=== PATIENT | female | born 2000 | race Caucasian/White ===

== ENCOUNTER 2020-04-29 15:26 | Emergency (ER) | payer MEDICAID ==
[2020-04-29 15:32] VITALS: BP 139/83
--- NOTE | 2020-04-29 15:45 | ER Document Report ---
ED Medical Screen (RME) - General Chief Complaint: Vag Bleeding, +preg <12wks Stated Complaint: VAGINAL BLEEDING Time Seen by Provider: 04/29/20 15:39 - HPI Notes: 04/29/20 15:44 19-year-old female 8 weeks G1, P0 presents emergency room with vaginal bleeding that started about 20 minutes ago. Patient reports her last menstrual cycle was March 08, 2020. Denies any fevers or chills, chest pain or shortness of breath. Reports she does have some dizziness and nausea that is been going on for the last few days. I have greeted and performed a rapid initial assessment of this patient. A comprehensive ED assessment and evaluation of the patient, analysis of test results and completion of the medical decision making process will be conducted by additional ED providers. PHYSICAL EXAMINATION: GENERAL: Well-appearing, well-nourished and in no acute distress. HEAD: Atraumatic, normocephalic. EYES: Pupils equal round extraocular movements intact, conjunctiva are normal. NECK: Normal range of motion CV: s1, s2 regular abd: pelvic cramping Physical Exam - Vital signs Vitals: Temp Pulse Resp BP Pulse Ox 98.7 F 106 H 20 139/83 H 100 04/29/20 15:30 04/29/20 15:30 04/29/20 15:30 04/29/20 15:30 04/29/20 15:30 Course - Vital Signs Vital signs: Temp Pulse Resp BP Pulse Ox 98.7 F 106 H 20 139/83 H 100 04/29/20 15:30 04/29/20 15:30 04/29/20 15:30 04/29/20 15:30 04/29/20 15:30
--- NOTE | 2020-04-29 16:58 | ER Document Report ---
ED General - General Chief Complaint: Vag Bleeding, +preg <12wks Stated Complaint: VAGINAL BLEEDING Time Seen by Provider: 04/29/20 15:39 Mode of Arrival: Ambulatory Information source: Patient Notes: 04/29/20 15:42 - Nursing Note by JOAQUIM JENSEN Num: [id number] : 2000 Patient Age: 19 Pt ambulated to triage room without difficulty. Pt reports Last menstrual cycle was March 08, 2020. Pt reports vaginal spotting that started approx 20 minutes ago. Pt denies vaginal bleeding, reports "only once while wiping vagina after going to bathroom." Pt denies urinary or bowel symptoms. Pt sitting up to chair, Resp even & unlabored. Pt able to speak in complete sentences. WALE Rebolledo present for triage. Initialized on 04/29/20 15:42 - END OF NOTE my notes 19-year-old female arrives with chief complaint of having vaginal spotting that occurred shortly prior to arrival. Patient reports she was proposed to last and she and her got on Friday. Today is Friday. Patient reports she was wiping 1 time while after urination and saw some scant amount of vaginal bleeding. Patient reports she is urinated a few times afterwards and has had no bleeding. She denies any sexual intercourse within 12 hours. She is G1, P0 and therefore has anode worker in being . She therefore came in because she was a bit apprehensive. No one in the family has any coronavirus or sickness. She denies any dysuria or post void abdominal pain. She denies any cough or cold symptoms. She denies any skin lesions. TRAVEL OUTSIDE OF THE [place] IN LAST 30 DAYS: No - HPI Onset: Just prior to arrival Onset/Duration: Sudden, Better Quality of pain: No pain Severity: None Pain Level: Denies - Related Data Allergies/Adverse Reactions: No Known Allergies Allergy (Verified 04/29/20 15:47) Past Medical History - General Information source: Patient, Relative - With in room. They both appear calm and not anxious. - Social History Smoking Status: Former Smoker Cigarette use (# per day): No Chew tobacco use (# tins/day): No Smoking Education Provided: No Frequency of alcohol use: None Drug Abuse: None Lives with: Family Family History: Reviewed & Not Pertinent Patient has suicidal ideation: No Patient has homicidal ideation: No Review of Systems - Review of Systems Constitutional: No symptoms reported EENT: No symptoms reported Cardiovascular: No symptoms reported Respiratory: No symptoms reported Gastrointestinal: No symptoms reported Genitourinary: No symptoms reported Female Genitourinary: See HPI, , Vaginal bleeding Musculoskeletal: No symptoms reported Skin: No symptoms reported Hematologic/Lymphatic: No symptoms reported Neurological/Psychological: No symptoms reported Physical Exam - Vital signs Vitals: Temp Pulse Resp BP Pulse Ox 98.7 F 106 H 20 139/83 H 100 04/29/20 15:30 04/29/20 15:30 04/29/20 15:30 04/29/20 15:30 04/29/20 15:30 Interpretation: Tachycardic - General General appearance: Alert - HEENT Head: Normocephalic, Atraumatic Eyes: Normal Pupils: PERRL Mucous membranes: Normal Pharynx: Normal Neck: Normal - Respiratory Respiratory status: No respiratory distress Chest status: Nontender Breath sounds: Normal Chest palpation: Normal - Cardiovascular Rhythm: Regular Heart sounds: Normal auscultation Murmur: No - Abdominal Inspection: Normal Distension: No distension Bowel sounds: Normal Tenderness: Nontender Organomegaly: No organomegaly - Rectal Hemorrhoids: Other - deferred - Genitourinary Bimanuel exam: Other - deferred - Back Back: Normal - Extremities General upper extremity: Normal inspection General lower extremity: Normal inspection - Neurological Neuro grossly intact: Yes Cognition: Normal Orientation: AAOx4 Udell Coma Scale Eye Opening: Spontaneous Udell Coma Scale Verbal: Oriented Tito Coma Scale Motor: Obeys Commands Udell Coma Scale Total: 15 Speech: Normal Motor strength normal: LUE, RUE, LLE, RLE Sensory: Normal - Psychological Associated symptoms: Normal affect - Skin Skin Temperature: Warm Skin Moisture: Dry Course - Vital Signs Vital signs: Temp Pulse Resp BP Pulse Ox 98.7 F 106 H 20 139/83 H 100 04/29/20 15:30 04/29/20 15:30 04/29/20 15:30 04/29/20 15:30 04/29/20 15:30 - Laboratory Result Diagrams: 04/29/20 16:40 04/29/20 16:40 Laboratory results interpreted by me: 04/29/20 04/29/20 16:40 16:40 RDW 14.3 H Sodium 135.5 L Beta HCG, Quant 57493.00 H - Diagnostic Test Radiology reviewed: Reports reviewed - Ultrasound positive for IUP at 7 weeks with bradycardia at 89 bpm. Close follow-up is advised because of this according to radiologist. I advised and patient of this fact as well. Dr. Diez and Dr. Cason or rn assessment Maria Ines are landscape contractor. And I advised patient to follow-up with these professionals. Discharge - Discharge Clinical Impression: Qualifiers: Weeks of gestation: less than 8 weeks Qualified Code(s): Z3A.01 - Less than 8 weeks gestation of Normal IUP (intrauterine ) on ultrasound Qualifiers: Trimester: first trimester Qualified Code(s): Z34.91 - Encounter for supervision of normal , unspecified, first trimester Condition: Good Disposition: HOME, SELF-CARE Additional Instructions: Your ultrasound was positive for a IUP living baby at around 7 weeks gravid with a heartbeat at 89 bpm a bit slow and therefore close follow-up for this is advised by Dr. Diez or Dr. Cason or rn assessment Maria Ines. Please follow-up with these professionals. Also advise vaginal rest with no douches tub baths or sex until seen by OB doctor. Referrals: SYLWIA CASON MD [ACTIVE PROVISIONAL STAFF] - Follow up as needed COURTNEY DIEZ MD [ACTIVE STAFF] - Follow up as needed
[2020-04-29 17:08] LABS: ABSOLUTE EOSINOPHILS # (AUTO) 0.2 10^3/uL (0.0-0.6); ABSOLUTE LYMPHOCYTES (AUTO) 2.3 10^3/uL (0.5-4.7); ABSOLUTE MONOCYTES (AUTO) 0.4 10^3/uL (0.1-1.4); ABSOLUTE NEUT (AUTO) 2.3 10^3/uL (1.7-8.2); BASOPHILS % (AUTO) 0.5 % (0-2); HEMATOCRIT 39.8 % (36.0-47.0); HEMOGLOBIN 13.6 g/dL (12.0-15.5); LYMPHOCYTES % (AUTO) 44.7 % (13-45); MEAN CORPUSCULAR HGB CONC 34.2 g/dL (32.0-36.0); MEAN CORPUSCULAR VOLUME 85 fl (80-97); MONOCYTES % (AUTO) 7.1 % (3-13); PLATELET COUNT 216 10^3/uL (150-450); RED CELL DISTRIBUTION WIDTH 14.3 % (11.5-14.0); SEGMENTED NEUTROPHILS % (AUTO) 44.7 % (42-78); TOTAL CELLS COUNTED % (AUTO) 100 %; WHITE BLOOD COUNT 5.1 10^3/uL (4.0-10.5)
[2020-04-29 17:27] LABS: ALBUMIN 4.2 g/dL (3.5-5.0); ALKALINE PHOSPHATASE 64 U/L (38-126); ANION GAP 9 (5-19); ASPARTATE AMINO TRANSFERASE 27 U/L (14-36); BILIRUBIN,TOTAL 0.4 mg/dL (0.2-1.3); BLOOD UREA NITROGEN 11 mg/dL (7-20); CALCIUM 9.4 mg/dL (8.4-10.2); CARBON DIOXIDE 24 mmol/L (22-30); CHLORIDE 103 mmol/L (98-107); GLUCOSE 76 mg/dL (75-110); POTASSIUM 4.3 mmol/L (3.6-5.0); TOTAL PROTEIN 7.1 g/dL (6.3-8.2)
--- NOTE | 2020-04-29 17:51 | RADIOLOGY REPORT (SQ) ---
EXAM DESCRIPTION: U/S [id number] TRNABD 1GES W/ODOP IMAGES COMPLETED DATE/TIME: 04/29/2020 5:29 pm REASON FOR STUDY: 8w preg, , vag bleeding started today COMPARISON: None. TECHNIQUE: Transvaginal and transabdominal grayscale images acquired of the pelvis. Additional selec jim spectral and color Doppler images recorded. All images stored on PACs. bHCG: Pending. CLINICAL DATES: EGA 7 weeks 3 days LIMITATIONS: None. FINDINGS: FETUS: Single Living intrauterine . ULTRASOUND EGA: 6 weeks 3 days ULTRASOUND BHANU: 12/10/2020 EFW: Not applicable less than 20 weeks. CRL: 0.5 cm FHR: 89 beats per minute. AMNIOTIC FLUID: Adequate amount. PLACENTA: Not yet developed due to early gestation. SUBCHORIONIC BLEED: No. SIZE OF BLEED: Not applicable. UTERUS: Measures 10.3 x 5.6 x 6.5 cm. CERVICAL LENGTH: 3.5 cm Closed. RIGHT ADNEXA: The right ovary was not visualized, obscured by overlying bowel gas. LEFT ADNEXA: The left ovary measures 3.5 x 1.8 x 2.8 cm. Flow by Doppler was shown to the left ovary . FREE FLUID: None. IMPRESSION: 1. LIVING INTRAUTERINE . EGA 6 WEEKS 3 DAYS. 2. BRADYCARDIA, CLOSE FOLLOW-UP RECOMMENDED. Trimester of : First trimester - 0 to 13 weeks. TECHNICAL DOCUMENTATION: JOB ID: [id number] [employer]- All Rights Reserved rev Reading location - IP/workstation name: [email or web address]
[2020-04-29 18:26] LABS: APPEARANCE,URINE SLIGHTLY-CLOUDY; BILIRUBIN,URINE NEGATIVE (NEGATIVE); COLOR,URINE YELLOW; GLUCOSE, URINE NEGATIVE (NEGATIVE); KETONES,URINE NEGATIVE (NEGATIVE); LEUKOCYTE ESTERASE,URINE NEGATIVE (NEGATIVE); NITRITE,URINE NEGATIVE (NEGATIVE); PROTEIN,URINE NEGATIVE (NEGATIVE)
== END 2020-04-29 18:35 | disposition home or self-care (01) ==
LOC: ER 15:26
DX: O20.9 Hemorrhage in early pregnancy, unspecified (principal); Z3A.01 Less than 8 weeks gestation of pregnancy
CPT/HCPCS: 36415; 76801; 80053; 81001; 84702; 85025; 86900; 86901; 99284

== ENCOUNTER 2020-05-19 08:32 | Emergency (ER) | payer MEDICAID ==
[2020-05-19] MEDS ORDERED: NORMAL SALINE 1000 ML 1,000 ML IV ONE (08:58)
[2020-05-19] MEDS ORDERED: ONDANSETRON HCL INJ/PF 4 MG/2 ML SDV IV ONE (08:59)
[2020-05-19] MEDS ORDERED: DEXTROSE 5%-NORMAL SALINE 1,000 ML IV ONE (08:59)
--- NOTE | 2020-05-19 09:11 | ER Document Report ---
ED GI/ - General Chief Complaint: Nausea/Vomiting Stated Complaint: VOMITING Time Seen by Provider: 05/19/20 08:58 Primary Care Provider: DEANA BEE ARNP [NO LOCAL MD] - Follow up as needed Notes: CHIEF COMPLAINT: Vomiting with HPI: 19-year-old female who is approximately 10 weeks gestation by ultrasound per the patient who follows at the health department presenting with 4 days of nausea vomiting. Denies abdominal pain or cramping. Denies vaginal bleeding or discharge. Has not had significant issues with hyperemesis throughout the . Has not had fever. Throwing up 6-10 times daily. Has not contacted her SHEATHER about evaluation for this. ROS: See HPI - all other systems were reviewed and are otherwise negative Constitutional: no fever Eyes: no drainage, no blurred vision ENT: no runny nose, no sore throat Cardiovascular: no chest pain Resp: no SOB, no cough GI: + vomiting, no diarrhea, no abdominal pain : no dysuria Integumentary: no rash Allergy: no hives Musculoskeletal: no extremity pain or swelling Neurological: no numbness/tingling, no weakness MEDICATIONS: I agree with the patient medications as charted by the RN. ALLERGIES: I agree with the allergies as charted by the RN. PAST MEDICAL HISTORY/PAST SURGICAL HISTORY: Reviewed and agree as charted by RN. SOCIAL HISTORY: Reviewed and agree as charted by RN. FAMILY HISTORY: No significant familial comorbid conditions directly related to patient complaint EXAM: Reviewed vital signs as charted by RN. CONSTITUTIONAL: Alert and oriented and responds appropriately to questions. Well-appearing; well-nourished HEAD: Normocephalic; atraumatic EYES: PERRL; Conjunctivae clear, sclerae non-icteric ENT: normal nose; no rhinorrhea; moist mucous membranes; pharynx without lesions noted, no uvula edema or deviation, no tonsillar hypertrophy, phonation normal NECK: Supple without meningismus; non-tender; no cervical lymphadenopathy, no masses CARD: RRR; no murmurs, no clicks, no rubs, no gallops; symmetric distal pulses RESP: Normal chest excursion without splinting or tachypnea; breath sounds clear and equal bilaterally; no wheezes, no rhonchi, no rales, pulse oximetry 98% on room air not hypoxic ABD/GI: Normal bowel sounds; non-distended; soft, non-tender, no rebound, no guarding; no palpable organomegaly or masses. BACK: The back appears normal and is non-tender to palpation, there is no CVA tenderness EXT: Normal ROM in all joints; non-tender to palpation; no cyanosis, no effusions, no edema SKIN: Normal color for age and race; warm; dry; good turgor; no acute lesions noted NEURO: Moves all extremities equally; Motor and sensory function intact PSYCH: The patient's mood and manner are appropriate. Grooming and personal hygiene are appropriate. MDM: 19-year-old female likely with hyperemesis gravidarum. We will aggressively hydrate check basic and screening labs and urinalysis. She is not having any abdominal pain or vaginal complaints TRAVEL OUTSIDE OF THE [place] IN LAST 30 DAYS: No - Related Data Allergies/Adverse Reactions: No Known Allergies Allergy (Verified 04/29/20 15:47) Past Medical History - Social History Smoking Status: Former Smoker Chew tobacco use (# tins/day): No Frequency of alcohol use: None Drug Abuse: None Family History: Reviewed & Not Pertinent Physical Exam - Vital signs Vitals: Temp Pulse Resp BP Pulse Ox 97.5 F 125 H 18 118/64 99 05/19/20 08:40 05/19/20 08:40 05/19/20 08:40 05/19/20 08:40 05/19/20 08:40 Course - Re-evaluation Re-evalutation: 05/19/20 11:16 Patient feels much better after IV fluids. She is tolerating oral fluids in the ER. Does not have medication for nausea at home. Will prescribe Zofran, follow-up SHEATHER 05/19/20 11:49 Repeat heart rate at time of discharge by nursing is 102. - Vital Signs Vital signs: Temp Pulse Resp BP Pulse Ox 97.5 F 125 H 18 118/64 99 05/19/20 08:40 05/19/20 08:40 05/19/20 08:40 05/19/20 08:40 05/19/20 08:40 - Laboratory Result Diagrams: 05/19/20 09:03 05/19/20 09:03 Laboratory results interpreted by me: 05/19/20 05/19/20 05/19/20 09:03 09:03 09:03 RDW 14.7 H Sodium 135.3 L Potassium 3.5 L Carbon Dioxide 20 L Creatinine 0.41 L Beta HCG, Quant 715037.00 H Urine Protein 30 H Urine Ketones 80 H Urine Blood MODERATE H Urine Urobilinogen 4.0 H Discharge - Discharge Clinical Impression: Hyperemesis gravidarum Condition: Stable Disposition: HOME, SELF-CARE Instructions: Antinausea Medication ([facility]) Additional Instructions: Take Zofran for nausea vomiting, push fluids at home, call your SHEATHER to schedule close follow-up in the office for reevaluation of symptoms return if vomiting reoccurs Prescriptions: Ondansetron [Zofran Odt 4 mg Tablet] 1 - 2 tab PO Q4H PRN #15 tab.rapdis PRN Reason: For Nausea/Vomiting Referrals: DEANA BEE ARNP [NO LOCAL MD] - Follow up as needed
[2020-05-19 09:34] LABS: ABSOLUTE LYMPHOCYTES (AUTO) 1.2 10^3/uL (0.5-4.7); ABSOLUTE MONOCYTES (AUTO) 0.5 10^3/uL (0.1-1.4); ABSOLUTE NEUT (AUTO) 5.6 10^3/uL (1.7-8.2); BASOPHILS % (AUTO) 0.3 % (0-2); EOSINOPHILS % (AUTO) 0.6 % (0-6); HEMATOCRIT 37.4 % (36.0-47.0); HEMOGLOBIN 13.3 g/dL (12.0-15.5); LYMPHOCYTES % (AUTO) 16.3 % (13-45); MEAN CORPUSCULAR HEMOGLOBIN 29.3 pg (27.0-33.4); MEAN CORPUSCULAR HGB CONC 35.5 g/dL (32.0-36.0); MEAN CORPUSCULAR VOLUME 83 fl (80-97); MONOCYTES % (AUTO) 6.4 % (3-13); PLATELET COUNT 192 10^3/uL (150-450); RED BLOOD COUNT 4.53 10^6/uL (3.72-5.28); RED CELL DISTRIBUTION WIDTH 14.7 % (11.5-14.0); SEGMENTED NEUTROPHILS % (AUTO) 76.4 % (42-78); TOTAL CELLS COUNTED % (AUTO) 100 %; WHITE BLOOD COUNT 7.4 10^3/uL (4.0-10.5)
[2020-05-19 09:38] LABS: APPEARANCE,URINE SLIGHTLY-CLOUDY; BILIRUBIN,URINE NEGATIVE (NEGATIVE); COLOR,URINE AMBER; GLUCOSE, URINE NEGATIVE (NEGATIVE); KETONES,URINE 80 mg/dL (NEGATIVE); LEUKOCYTE ESTERASE,URINE NEGATIVE (NEGATIVE); NITRITE,URINE NEGATIVE (NEGATIVE); PROTEIN,URINE 30 mg/dL (NEGATIVE); URINE SPECIFIC GRAVITY 1.028
[2020-05-19 10:00] LABS: ALBUMIN 4.3 g/dL (3.5-5.0); ALKALINE PHOSPHATASE 84 U/L (38-126); ANION GAP 11 (5-19); ASPARTATE AMINO TRANSFERASE 21 U/L (14-36); BILIRUBIN,DIRECT 0.3 mg/dL (0.0-0.4); BILIRUBIN,TOTAL 1.2 mg/dL (0.2-1.3); BLOOD UREA NITROGEN 7 mg/dL (7-20); CARBON DIOXIDE 20 mmol/L (22-30); CHLORIDE 104 mmol/L (98-107); GLUCOSE 106 mg/dL (75-110); POTASSIUM 3.5 mmol/L (3.6-5.0); TOTAL PROTEIN 7.4 g/dL (6.3-8.2)
[2020-05-19 10:02] LABS: ADD MANUAL MICROSCOPIC YES
[2020-05-19 10:03] LABS: BACTERIA,URINE 1+ /HPF; WBC,URINE NONE SEEN /HPF
[2020-05-19] MEDS ORDERED: ACETAMINOPHEN 325 MG TABLET PO ONE (10:13)
[2020-05-19 12:10] VITALS: BP 120/72
== END 2020-05-19 12:08 | disposition home or self-care (01) ==
LOC: ER 08:32
DX: O21.0 Mild hyperemesis gravidarum (principal); Z3A.10 10 weeks gestation of pregnancy; Z87.891 Personal history of nicotine dependence
CPT/HCPCS: 99284; 96361; 96374; 36415; 84702; 85025; 80053; 81001; J3490; J2405; J7042; J7030

== ENCOUNTER 2020-06-09 20:09 | Emergency (ER) | payer MEDICAID, OTHER ==
[2020-06-09 20:14] VITALS: BP 137/75
[2020-06-09] MEDS ORDERED: METOCLOPRAMIDE HCL 10 MG TABLET PO ONE (21:07)
[2020-06-09] MEDS ORDERED: RINGERS SOLUTION,LACTATED 1,000 ML IV ONE (21:09)
--- NOTE | 2020-06-09 21:10 | ER Document Report ---
ED Medical Screen (RME) - General Chief Complaint: Nausea/Vomiting Stated Complaint: VOMITING/12 WEEKS Time Seen by Provider: 06/09/20 21:03 Mode of Arrival: Ambulatory Information source: Patient Notes: HPI; 19-year-old female states she is 12 weeks she is a 1 presents to the emergency room complaining of vomiting that started yesterday. States unable to tolerate anything p.o. Has been taking promethazine without relief. Also complains of some dysuria. Denies any vaginal bleeding. Denies any abdominal pain. Of care is obtained through the health department. PE: Alert and oriented x3. Mild distress noted. Lungs: Clear to auscultation without rales, rhonchi, wheezes. Heart: Tachycardic without murmurs, rubs, gallops. I have greeted and performed a rapid initial assessment of this patient. A comprehensive ED assessment and evaluation of the patient, analysis of test results and completion of the medical decision making process will be conducted by additional ED providers. I have specifically instructed the patient or family members with the patient to immediately return to any nursing staff should anything change in the patient's condition or with their chief complaint. TRAVEL OUTSIDE OF THE [place] IN LAST 30 DAYS: No - Related Data Allergies/Adverse Reactions: No Known Allergies Allergy (Verified 04/29/20 15:47) Physical Exam - Vital signs Vitals: Temp Pulse Resp BP Pulse Ox 98.2 F 128 H 16 137/75 H 98 06/09/20 20:12 06/09/20 20:12 06/09/20 20:12 06/09/20 20:12 06/09/20 20:12 Course - Vital Signs Vital signs: Temp Pulse Resp BP Pulse Ox 98.2 F 128 H 16 137/75 H 98 06/09/20 20:12 06/09/20 20:12 06/09/20 20:12 06/09/20 20:12 06/09/20 20:12
== END 2020-06-09 21:21 | disposition left against medical advice (07) ==
LOC: ER 20:09
DX: O21.9 Vomiting of pregnancy, unspecified (principal); O26.891 Other specified pregnancy related conditions, first trimester; R30.0 Dysuria; Z3A.12 12 weeks gestation of pregnancy; Z53.20 Procedure and treatment not carried out because of patient's decision for unspecified reasons; Z53.29 Procedure and treatment not carried out because of patient's decision for other reasons
CPT/HCPCS: 99281